=== PATIENT | female | born 1985 | race African-American/Black ===

== ENCOUNTER 2019-02-12 14:16 | Emergency (ER) | payer MEDICAID, SELFPAY ==
[2019-02-12 14:19] VITALS: BP 148/89; PULSE 64; RESP 16; TEMP 36.1; O2SAT 99; BMI 40.3
--- NOTE | 2019-02-12 16:25 | CT_ITS ---
STUDY: CT BRAIN WITHOUT CONTRAST REASON FOR EXAM: Female, 33 years old. Headache, difficulty swallowing RADIATION DOSAGE (If Supplied By Facility): CTDIvol = ( 44.99 ) mGy, DLP = ( 779.24 ) mGycm TECHNIQUE: Transaxial CT imaging of the brain was performed without administration of intravenous contrast material. Individualized dose optimization techniques were used for this CT. COMPARISON: No relevant priors. FINDINGS: Normal soft tissue structures. Normal calvarium. Normal size ventricles and extra-axial spaces for the patient's age. Normal white matter tracts of the cerebral hemispheres. Normal basal ganglia and thalami. Normal brainstem. Normal cerebellum. There is no intracranial hemorrhage. There are no findings of an acute ischemic infarction. Normal visualized paranasal sinuses. CT/Brain/Head without Contrast IMPRESSION: Normal unenhanced CT scan of the brain. Electronically Signed: Tom Moore DO at 18:50 EDT Tel [phone], Service support ,
--- NOTE | 2019-02-12 16:27 | CT_ITS ---
STUDY: CT SOFT TISSUE NECK WITH CONTRAST REASON FOR EXAM: Female, 33 years old. Difficulty swallowing. RADIATION DOSAGE (If Supplied By Facility): CTDIvol = ( 23.79 ) mGy, DLP = ( 641.48 ) mGycm TECHNIQUE: The patient was scanned in a multi-detector CT scanner. High resolution transaxial imaging was performed following intravenous administration of 100ML IV Isovue 300. Sagittal and coronal images were reconstructed. Individualized dose optimization techniques were used for this CT. COMPARISON: None. FINDINGS: Normal bilateral parotid glands. Normal bilateral sub plant manager spaces. Normal bilateral parapharyngeal spaces. Normal bilateral carotid spaces. Normal bilateral submandibular glands and spaces. Normal visualized nasopharynx. Normal retropharyngeal space. Normal prevertebral space. Normal visualized bilateral faucial tonsils. The visualized tongue, tongue base and oropharynx are normal. The visualized cervical lymph nodes (levels I-) are within normal size limits, and maintain normal morphology. There is no demonstrated solid or cystic mass lesion. There is no abnormal contrast enhancement. Normal epiglottis, bilateral vallecula and hypopharynx. The pre-epiglottic and paraglottic adipose spaces are normal. Normal visualized bilateral piriform sinuses, aryepiglottic folds, vocal cords, and arytenoid-cricoid articulations. Normal subglottic trachea. Normal bilateral lobes of the thyroid gland. Normal visualized pulmonary apices. Normal visualized paranasal sinuses. Normal visualized cervical spine. CT/Soft Tissue Neck WITH Contrast IMPRESSION: Normal enhanced CT examination of the soft tissues of the neck. Electronically Signed: Barbara Adamson MD at 21:16 EDT Tel , Service support ,
[2019-02-12 17:11] LABS: Bacteria 0 SEEN /hpf (None Seen); Mucous, Urine 0 SEEN /hpf (<or=2+); Red Blood Cells-Urine 0 SEEN /hpf (0-5); White Blood Cells 0 SEEN /hpf (0-5)
[2019-02-12 17:14] LABS: Color, Urine Yellow (Yellow); Glucose, Dipstick Normal (Normal); Ketone-Dipstick Negative (Negative); Leukocyte Esterase-Dipstick Negative /ul (Negative); Nitrite-Dipstick Negative (Negative); Occult Blood-Urine Negative /ul (Negative); Protein-Dipstick Negative (Negative); Specific Gravity, Urine 1.015 (1.002-1.030); Urine Bilirubin Dipstick Negative (Negative); Urine Clarity Sl. Cloudy (Clear); Urine Urobilinogen Normal (Normal)
[2019-02-12 17:16] VITALS: BP 105/72; PULSE 61; RESP 27
[2019-02-12] MEDS: 0.9% Normal Saline 1,000 ML 1000 ML IV (17:17)
[2019-02-12 17:28] LABS: Squamous Epithelial Cells - UA 5-10 SEEN /hpf (5-10)
--- NOTE | 2019-02-12 17:52 | NURSING ---
CBCD AND CHEMISTRIES HEMOLIZED
[2019-02-12] MEDS: 0.9% Normal Saline 1,000 ML 150 ML IV (17:55)
[2019-02-12 18:53] LABS: Absolute Lymphocyte Count 3.75 X10^3/ul (0.83-4.51); Absolute Neutrophil Count 3.6 X10^3/uL (2.0-7.7); Basophil# 0.02 X10^3/uL; Basophil% 0.2 % (0-1); Eosinophils% 2.5 % (0-5); Hematocrit 40.2 % (37-47); Hemoglobin 12.6 g/dl (12.0-15.0); Lymphocyte # 3.75 X10^3/ul (4.0); Mean Corp Hgb Conc 31.3 g/gl (32-36); Mean Corpuscular Volume 82.9 fL (81-99); Mean Platelet Vol. 10.8 fl (6.2-12.0); Monocyte# 0.55 X10^3/uL; Monocyte% 6.7 % (0-10); Neutrophil # 3.63 X10^3/uL (2.7-7.7); Neutrophil % 44.5 % (47-70); Platelet Count 275 K/mm3 (150-450); RBC Distribution Width CV 15.4 % (11.6-14.6); RBC Distribution Width SD 46.9 fl (35.1-43.9); Red Blood Count 4.85 M/mm3 (4.2-5.4); White Blood Count 8.2 K/mm3 (4.4-11.0)
[2019-02-12 18:58] LABS: POSITIVE COUNT NO; POSITIVE DIFFERENTIAL NO; POSITIVE MORPHOLOGY NO
[2019-02-12 19:04] VITALS: PULSE 63; RESP 18; O2SAT 100
[2019-02-12 19:19] LABS: AST(SGOT) 16 U/L (15-37); Alanine Aminotransfer ALT/SGPT 21 U/L (13-56); Albumin, Serum 3.3 g/dL (3.2-5.0); Alkaline Phosphatase 111 U/L (45-117); Anion Gap 4 (5-15); BUN 10 mg/dL (7-18); BUN/Creat Ratio 10.7 RATIO (10-20); Calcium,Total 8.4 mg/dL (8.5-10.1); Chloride 110 mmol/L (98-107); Creatinine, Serum 0.93 mg/dL (0.55-1.02); EST Glomerular Filtration Rate 74 mL/min (>60); Est Glom Filt Rate - Afr Amer 89 mL/min (>60); Globulin 3.3 g/dL (2.2-4.2); Glucose 69 mg/dL (74-106); Lipase 98 U/L (73-393); Potassium 3.7 mmol/L (3.5-5.1); Protein, Total 6.6 g/dL (6.4-8.2); Sodium Level 141 mmol/L (136-145)
[2019-02-12 19:21] LABS: hCG Titer Quant., Serum < 1 mIU/mL (<9 non-preg)
--- NOTE | 2019-02-12 21:00 | ED.VISSUMM ---
- ER Visit Summary Date of Service: 02/12/19 Chief Complaint: Sore throat, heartburn, difficulty swallowing, forgetfulness History of Present Illness: The patient is a 33 F with a abnormal constitutional symptoms over the past 3 weeks. She reports tightness in her throat that makes it difficult to swallow. She states she has to excessively chew her food. She only eats one meal a day at baseline. She does have a history of reflux and takes Pepcid. She states she has felt for more forgetful recently and that is not like her. She was reviewing her symptoms on global and believe she has dysphasia, but does not know the cause of her dysphagia. Physical Examination: Vital signs are unremarkable. Patient sitting upright in bed no acute distress. Head neck examination is unremarkable. Heart is regular rate and rhythm. Lung sounds are clear. Abdomen is soft with no focal tenderness. Active bowel sounds are noted. Extremity examination is unremarkable. Neuro exam reveals normal strength and sensation throughout. She is alert and oriented at this time. Test Results: CBC and chemistry studies significant only for glucose borderline low at 69. LFTs lipase normal. Urinalysis normal. test negative. CT of the head is normal. CT of the neck with IV contrast is unremarkable. Emergency Department Course and Treatment: Patient is given IV fluids here. I did discuss with her concern for chronic reflux and only eating 1 meal a day which may cause irritation of her esophagus making it difficult to swallow. I recommended follow-up with surgery for possible EGD. Treatment Plan: [] Disposition: Discharge Impression: Dysphasia This note was generated with [employer] dictation software. It may contain incorrect words, spelling, and punctuation that were not noted in review of the chart prior to signing ED Disposition - Plan for ED Patient: Disposition: Home or Assisted Living Instructions: Understanding Dysphagia Referrals: Santos Crowell MD [STAFF PHYSICIAN] - 1 Week Olivia Anderson NP-C [Primary Care Provider] -
--- NOTE | 2019-02-12 21:01 | ED.DEP ---
ED Disposition - Plan for ED Patient: Disposition: Home or Assisted Living Instructions: Understanding Dysphagia Referrals: Olivia Anderson NP-C [Primary Care Provider] - Santos Crowell MD [STAFF PHYSICIAN] - 1 Week
[2019-02-12 21:15] VITALS: BP 137/87; PULSE 81; RESP 14; O2SAT 99
== END 2019-02-12 21:15 | disposition home or self-care (01) ==
PROVIDERS: Emergency Provider Emergency Medicine; Family Provider Nurse Practitioner Family; PCP Nurse Practitioner Family
DX: R13.10 Dysphagia, unspecified (principal); R51 Headache; K21.9 Gastro-esophageal reflux disease without esophagitis; Z79.899 Other long term (current) drug therapy
CPT/HCPCS: 36415; 70450; 70491; 80048; 80076; 81001; 83690; 84702; 85025; 99283; Q9967; A4216

== ENCOUNTER 2022-10-10 07:13 | Emergency (ER) | payer MEDICAID, SELFPAY ==
[2022-10-10] VITALS (7 sets, daily range): BP systolic 120–135; BP diastolic 69–99; PULSE 45–66; RESP 12–18; TEMP 36.4; O2SAT 98–100; BMI 38.0
--- NOTE | 2022-10-10 07:59 | EKG12_ITS ---
Test Reason : CP Blood Pressure : / mmHG Vent. Rate : 050 BPM Atrial Rate : 050 BPM P-R Int : 146 ms QRS Dur : 072 ms QT Int : 442 ms P-R-T Axes : 015 036 026 degrees QTc Int : 402 ms Sinus bradycardia Otherwise normal ECG Confirmed by CHANELLE TINOCO, IGNACIO ([id number]), brands editor ALYSA TAM ([id number]) on 10/13/2022 10:29:34 AM Referred By: CARLOS Confirmed By:IGNACIO ROCA MD
--- NOTE | 2022-10-10 08:01 | NURSING ---
NO OLD EKGS
--- NOTE | 2022-10-10 08:05 | RAD_ITS ---
STUDY: X-RAY CHEST REASON FOR EXAM: Female, 36 years old. Chest pain TECHNIQUE: Single AP portable view of the chest. COMPARISON: None. FINDINGS: The lungs are clear and expanded. There is no demonstrated pleural abnormality. Normal size heart. Normal mediastinum and bri. Normal visualized pulmonary arteries. Normal visualized aortic arch and descending thoracic aorta. Normal visualized thoracic spine. Normal visualized ribs, clavicles, and shoulders. There is no demonstrated abnormality of the visualized soft tissue structures of the upper abdomen. RAD/Chest 1 View (Portable) IMPRESSION: Normal x-ray examination of the chest. Electronically Signed: Jeffrey Hodgson MD at 8:25 EST ,
[2022-10-10 08:07] LABS: Absolute Lymphocyte Count 3.02 X10^3/uL (0.83-4.51); Absolute Neutrophil Count 4.1 X10^3/uL (2.0-7.7); Basophil# 0.04 X10^3/uL; Basophil% 0.5 % (0-1); Eosinophil# 0.19 X10^3/uL; Eosinophils% 2.4 % (0-5); Hematocrit 42.9 % (37-47); Lymphocyte # 3.02 X10^3/ul (0.83-4.51); Lymphocyte % 37.9 % (19-41); Mean Corp Hgb Conc 30.3 g/dL (32-36); Mean Corpuscular Hgb 25.8 pg (27.0-32.0); Mean Corpuscular Volume 85.1 fL (81-99); Mean Platelet Vol. 10.7 fl (6.2-12.0); Monocyte% 7.5 % (0-10); NRBC Flagged by Analyzer 0 % (0-5); Neutrophil % 51.4 % (47-70); Platelet Count 322 K/mm3 (150-450); RBC Distribution Width CV 15.3 % (11.6-14.6); Red Blood Count 5.04 M/mm3 (4.2-5.4)
--- NOTE | 2022-10-10 08:10 | EDS_ITS ---
HPI History of Present Illness Chief Complaint: Chest Pain Informant: patient Onset/Context/Timing Onset: Today Activity at onset: sudden and sleep Timing: Continuous Quality: Positive for Burning, Pressure and Sharp Location: Substernal and Left Parasternal Worsened By: Movement of Arm, Breathing and - (Talking) Relieved By: Nothing Associated Symptoms: Negative for Nausea, Vomiting, Diaphoresis, Dyspnea, Cough, Fever, Lightheadedness, Acid Reflux or Palpitations Narrative Narrative: Patient presents with chest pain that began approximately 2 hours prior to arrival. Patient states she was sleeping when the pain began. Patient states the pain feels like pressure, burning, and sharp. Patient states the pain has been constant. Patient states pain is over the left upper parasternal area and upper substernal area. Patient states it is worse when she moves her arms. Patient states it is worse with deep breathing and with talking. Patient states nothing seems to help with the pain. Patient denies any nausea or vomiting. Patient denies any cough or fevers. Patient denies any shortness of breath. Patient denies any cardiac or PE risk factors. CVD Risk Factors: Negative for Hypertension, Diabetes, Hypercholesterolemia, Family History 1' </=55 or Smoking PE Risk Factors: Negative for Recent Travel/Surgery, Recent Immobilization, Prior DVT or PE, Cancer or OCP + Smoking + >/=35 PFSH PFSH Medical History (Updated 10/10/22 @ 11:[address] Shady Lopes DO) Anxiety Medical History no medical history Home Medications buspirone 15 mg tablet 15 mg PO TID 10/10/22 [History Last Taken Unknown] Allergy/AdvReac Type Severity Reaction Status Date / Time amoxicillin Allergy Hives Verified 10/10/22 07:16 Penicillins Allergy Hives Verified 10/10/22 07:16 Surgical History (Updated 10/10/22 @ 08:[address] Shady Lopes DO) Hx of foot surgery Hx of tonsillectomy Hx of tubal ligation Social History Smoking Status: Never smoker ROS ROS ED Constitutional Constitutional ED: Denies chills or fever(s) Eyes Eyes: Denies blurry vision or change in vision ENT ENT ED: Denies rhinorrhea or sore throat Cardiovascular Cardiovascular: Reports chest pain; Denies palpitations Respiratory/Chest Respiratory/Chest: Denies cough or dyspnea Gastrointestinal Gastrointestinal: Denies abdominal pain, nausea or vomiting Genitourinary Genitourinary ED: Denies dysuria or hematuria Musculoskeletal Musculoskeletal: Denies back pain or neck pain Integumentary Denies abscess or rash Neurologic Neurologic: Denies headache(s) or weakness Allergic/Immunologic Allergic/Immunologic ED: Denies mouth swelling or urticaria EXAM Physical Exam Const Vital Signs: 10/10/22 07:14 10/10/22 07:20 10/10/22 08:05 Temperature 97.6 F L Temperature Source Temporal Pulse Rate 66 Respiratory Rate 18 Respiratory Effort Normal Non-Labored Blood Pressure 135/69 H Blood Pressure Mean 91 Pulse Ox 100 98 Oxygen Delivery Method Room Air Room Air 10/10/22 08:21 10/10/22 09:16 10/10/22 10:05 Temperature Temperature Source Pulse Rate 46 L 58 L 45 L Respiratory Rate 16 16 12 Respiratory Effort Blood Pressure 126/81 H 120/80 123/83 H Blood Pressure Mean 96 93 96 Pulse Ox 98 99 100 Oxygen Delivery Method Room Air Room Air Room Air 10/10/22 11:01 Temperature Temperature Source Pulse Rate 48 L Respiratory Rate 16 Respiratory Effort Blood Pressure 128/99 H Blood Pressure Mean 108 Pulse Ox 98 Oxygen Delivery Method Room Air Positive well nourished, well developed and obese General Appearance ED: well developed and NAD Nutritional Appearance: obese HEENT normocephalic and atraumatic Eyes PERRL and EOMs intact bilaterally Neck supple and no JVD Chest Wall palpation of chest normal Resp normal respiratory effort and clear to auscultation bilaterally Effort and Inspection: Negative for respiratory distress Cardio regular rate, regular rhythm and no murmurs GI normal to inspection, nondistended, normoactive bowel sounds, soft to palpation, non-tender and non-distended Extremity normal to inspection General Extremety ED: Negative for edema or tenderness General Extremity: Negative for edema Neuro oriented x3, CN's II-XII intact bilaterally and no sensory deficits noted Sensorium / Orientation: awake and alert Motor Exam: strength 5/5 throughout Psych mental status grossly normal Heart Score History: Slightly/Non-Suspicious ECG: Normal Age: </= 45 years Risk Factors: No Risk Factors Troponin: </= Normal Limit Score: 0 MDM MDM MDM Narrative Medical decision making narrative: Patient was given aspirin here. EKG was obtained. On my interpretation, it showed a sinus bradycardia with a rate of 50. AK interval, QRS interval, and QTc intervals were all normal. [place] was normal. There are no acute ST or T wave changes. CBC was within normal limits. Basic metabolic profile was within normal limits. Initial high-sensitivity troponin was normal at 5. Portable 1 view chest x-ray was obtained. On my interpretation, lung wilson are clear. There is normal cardiac silhouette. Bony thorax is normal. There is no acute process noted. Radiologist also interpreted the x-ray and agrees. 2-hour repeat high-sensitivity troponin was normal at 6. Patient states her pain started to return. Repeat EKG was obtained. On my interpretation, it showed a sinus bradycardia with a rate of 46. AK interval, QRS interval, and QTc intervals were all normal. [place] was normal. There are no acute ST or T wave changes. Patient was given a dose of Toradol. Patient was feeling better on reevaluation. Patient was advised of her findings. Patient has a HEART score of 0. Patient was advised that this is low risk for acute cardiac event. Patient was instructed to follow-up with her primary care physician in 5 to 7 days. Patient was instructed return if worse in any way. Patient understood and was agreeable with the plan. All questions were answered. Lab Data Attestation: I reviewed the patient's lab results. Labs: Laboratory Results - last 24 hr 10/10/22 10/10/22 10/10/22 07:35 07:35 10:15 WBC 8.0 RBC 5.04 Hgb 13.0 Hct 42.9 MCV 85.1 MCH 25.8 L MCHC 30.3 L RDW Std Deviation 47.0 H RDW Coeff of Loly 15.3 H Plt Count 322 MPV 10.7 Immature Gran % (Auto) 0.300 Neut % (Auto) 51.4 Lymph % (Auto) 37.9 [place] % (Auto) 7.5 Eos % (Auto) 2.4 Baso % (Auto) 0.5 Absolute Neuts (auto) 4.1 Absolute Lymphs (auto) 3.02 Nucleated RBC % 0 Sodium 140 Potassium 4.2 Chloride 111 H Carbon Dioxide 24.0 Anion Gap 5 BUN 17 Creatinine 0.92 Estim Creat Clear Calc 86.10 Est GFR (MDRD) Af Amer 89 Est GFR (MDRD) Non-Af 74 BUN/Creatinine Ratio 18.6 Glucose 92 Calcium 9.0 Troponin I High Sens 5 6 Radiography Chest X-Ray - ED: 1 View, Read by ED Physician, Read by Radiologist and No Acute Disease Diagnostic Testing: Clinical Impression(s) from Imaging Studies Chest X-Ray 10/10/22 08:05 IMPRESSION: Normal x-ray examination of the chest. Electronically Signed: Jeffrey Hodgson MD at 8:25 EST , EKG Initial EKG: Attestation: I personally reviewed and interpreted this EKG as follows: Interpretation: No Acute Injury Pattern and Sinus Bradycardia (50) Prior EKG tracings: not available for review Prior: No Prior Follow-up EKG: Attestation: I personally reviewed and interpreted this EKG as follows: Interpretation: No Acute Injury Pattern and Sinus Bradycardia (46) Prior: Unchanged Discharge Plan Triage Chief Complaint: Chest Pain ED Provider: Shady Lopes Dx/Rx/DC Orders Clinical Impression: Chest pain of uncertain etiology, Anxiety, Sinus bradycardia Instructions: ED Chest Pain, Uncertain Cause Prescriptions: No Action buspirone 15 mg tablet 15 mg PO TID Label Comments: take 1 tablet by mouth three times a day Stand Alone Forms: Work / School Excuse Primary Care Provider: Drea Doyle NP Referrals: Olivia Anderson NP, [employer] COUNSELOR-C [Non-Staff] - 3-5 Days Disposition Disposition: Home, Self Care
[2022-10-10] MEDS: Aspirin 81 MG TAB.CHEW 324 MG PO (08:20)
[2022-10-10 08:25] LABS: Anion Gap 5 (5-15); BUN 17 mg/dL (7-18); BUN/Creat Ratio 18.6 RATIO (10-20); Chloride 111 mmol/L (98-107); Creatinine, Serum 0.92 mg/dL (0.55-1.02); EST Glomerular Filtration Rate 74 mL/min (>60); Est Glom Filt Rate - Afr Amer 89 mL/min (>60); Glucose 92 mg/dL (74-106); Potassium 4.2 mmol/L (3.5-5.1); Sodium Level 140 mmol/L (136-145); Troponin-I HS (w/2H Reflex) 5 pg/mL (3.0-54.0)
[2022-10-10 10:04] LABS: Reflex Troponin-HS? (from REC) Y
[2022-10-10 10:37] LABS: Troponin-I HS 6 pg/mL (3.0-54.0)
--- NOTE | 2022-10-10 10:46 | EKG12_ITS ---
Test Reason : REPEAT-CHEST PAIN Blood Pressure : / mmHG Vent. Rate : 046 BPM Atrial Rate : 046 BPM P-R Int : 152 ms QRS Dur : 072 ms QT Int : 464 ms P-R-T Axes : 015 037 040 degrees QTc Int : 406 ms Sinus bradycardia Otherwise normal ECG Confirmed by CHANELLE TINOCO, IGNACIO ([id number]), photo editor ALYSA TAM ([id number]) on 10/13/2022 10:29:48 AM Referred By: CARLOS Confirmed By:IGNACIO ROCA MD
[2022-10-10] MEDS: Ketorolac 30 MG/ML Syringe IV (10:51)
== END 2022-10-10 12:05 | disposition home or self-care (01) ==
PROVIDERS: Emergency Provider Emergency Medicine; PCP Nurse Practitioner Primary Care; Visit Provider Emergency Medicine
DX: R07.9 Chest pain, unspecified (principal); R00.1 Bradycardia, unspecified; F41.9 Anxiety disorder, unspecified; E66.9 Obesity, unspecified; Z79.899 Other long term (current) drug therapy
CPT/HCPCS: 36415; 71045; 80048; 84484; 85025; 93005; 96374; 99285; A4216

== ENCOUNTER 2022-10-30 16:52 | Emergency (ER) | payer MEDICAID, SELFPAY ==
[2022-10-30 16:53] VITALS: BP 119/76; PULSE 92; RESP 16; TEMP 36.3; O2SAT 98; BMI 39.5
--- NOTE | 2022-10-30 18:24 | EKG12_ITS ---
Test Reason : Dizzyness Blood Pressure : / mmHG Vent. Rate : 070 BPM Atrial Rate : 070 BPM P-R Int : 144 ms QRS Dur : 068 ms QT Int : 388 ms P-R-T Axes : 006 035 023 degrees QTc Int : 419 ms Normal sinus rhythm Normal ECG When compared with ECG of 10-OCT-2022 10:37, Vent. rate has increased BY 24 BPM Confirmed by CHANELLE TINOCO, IGNACIO ([id number]), makeup editor ALYSA TAM ([id number]) on 11/04/2022 7:56:04 AM Referred By: Katerina Confirmed By:IGNACIO ROCA MD
--- NOTE | 2022-10-30 19:00 | EX.ED.DYSGE1 ---
HPI History of Present Illness Chief Complaint: Dizziness Informant: patient Narrative Narrative: Patient is a 36-year-old female present with flulike symptoms. Patient's daughter was recently diagnosed with influenza A. Patient has had a sore throat and today developed diarrhea. She is initially feeling fine and then has subsequent episode diarrhea and then had episode of nausea. Patient felt she was going to pass out now just feels blah. Patient's friends told that the patient's face became very pale. She had a fever 100 ?F. She had Robitussin and Mucinex at 8 AM this morning. She states she is been ill for the past 2 days. Does have associated cough. Denies difficulty breathing. Really right now she is just feeling fatigued. Denies any chest pain. Is concerned she is dehydrated. No other complaints at this time. [facility] Medical History Anxiety Home Medications buspirone 15 mg tablet 15 mg PO TID 10/10/22 [History Last Taken Unknown] ondansetron 4 mg disintegrating tablet 4 mg PO Q6H PRN nausea and vomiting #20 tabs 10/30/22 [Rx Last Taken Unknown] Allergy/AdvReac Type Severity Reaction Status Date / Time amoxicillin Allergy Hives Verified 10/30/22 16:55 Penicillins Allergy Hives Verified 10/30/22 16:55 Surgical History Hx of foot surgery Hx of tonsillectomy Hx of tubal ligation Social History Smoking Status: Never smoker ROS ROS ED Constitutional Constitutional ED: Reports chills and fever(s) Eyes Eyes: Denies change in vision ENT ENT ED: Reports sore throat; Denies ear pain Cardiovascular Cardiovascular: Denies chest pain or palpitations Respiratory/Chest Respiratory/Chest: Reports cough; Denies dyspnea Gastrointestinal Gastrointestinal: Reports diarrhea and nausea; Denies abdominal pain Genitourinary Genitourinary ED: Denies dysuria or hematuria Musculoskeletal Musculoskeletal: Denies arthralgias or myalgias Integumentary Denies rash Neurologic Neurologic: Reports weakness; Denies headache(s) Psychiatric Psychiatric: Denies anxiety EXAM Physical Exam Const Vital Signs: 10/30/22 16:53 10/30/22 19:17 10/30/22 19:27 Temperature 97.4 F L Temperature Source Temporal Pulse Rate 92 Pulse Rate [Sitting (for 1 minute prior to obtaining)] 84 Pulse Rate [Standing (for 1 minute prior to obtaining)] 86 Respiratory Rate 16 Respiratory Effort Normal Blood Pressure 119/76 Blood Pressure [Lying] 103/59 L Blood Pressure [Sitting (for 1 minute prior to obtaining)] 116/81 H Blood Pressure [Standing (for 1 minute prior to obtaining)] 130/87 H Blood Pressure Mean 90 Blood Pressure Mean [Lying] 73 Blood Pressure Mean [Sitting (for 1 minute prior to obtaining)] 92 Blood Pressure Mean [Standing (for 1 minute prior to obtaining)] 101 Pulse Ox 98 Oxygen Delivery Method Room Air 10/30/22 21:05 Temperature Temperature Source Pulse Rate 81 Pulse Rate [Sitting (for 1 minute prior to obtaining)] Pulse Rate [Standing (for 1 minute prior to obtaining)] Respiratory Rate 16 Respiratory Effort Blood Pressure 117/74 Blood Pressure [Lying] Blood Pressure [Sitting (for 1 minute prior to obtaining)] Blood Pressure [Standing (for 1 minute prior to obtaining)] Blood Pressure Mean Blood Pressure Mean [Lying] Blood Pressure Mean [Sitting (for 1 minute prior to obtaining)] Blood Pressure Mean [Standing (for 1 minute prior to obtaining)] Pulse Ox 98 Oxygen Delivery Method Positive well nourished and well developed General Appearance ED: well developed and NAD HEENT Reports TM's clear and dry mucous membranes HEENT Narrative: Mild pharyngeal injection Tympanic Membrane ED: Yes TM's clear Mouth ED: Yes dry mucous membranes Mouth: dry mucous membranes Eyes PERRL and EOMs intact bilaterally Neck supple and no JVD Chest Wall inspection of chest normal and palpation of chest normal Resp normal respiratory effort and clear to auscultation bilaterally Cardio regular rate and regular rhythm GI normal to inspection, nondistended, normoactive bowel sounds and non-tender Back/Spine no CVA tenderness Extremity normal to inspection General Extremety ED: Negative for edema or tenderness General Extremity: Negative for edema Neuro oriented x3 Neuro Narrative: No focal deficits appreciated Sensorium / Orientation: alert Motor Exam: general weakness Psych mental status grossly normal Skin no rashes or lesions noted MDM MDM MDM Narrative Medical decision making narrative: Patient is evaluated for dizziness, generalized malaise and flulike symptoms. Patient will just does not feel well but her vital signs are normal. Due to the reported near syncopal episode metabolic work-up obtained including an EKG, CBC and CMP. This is largely normal. Patient's creatinine is minimally elevated at 1.06. Patient is given IV fluids. Influenza test is positive. This is consistent with patient's presentation. Patient is also given dose of Toradol in the ER. She will be discharged home with a prescription for some Zofran. At this time I do not think she requires further admission or observation for her symptomatic influenza infection. She is only symptoms for couple days as not having respiratory symptoms. I do not think a chest x-ray is indicated at this time. She is not hypoxic, tachypneic or tachycardic. Lab Data Labs: Laboratory Results - last 24 hr 10/30/22 10/30/22 10/30/22 19:10 19:10 19:40 WBC 6.6 RBC 5.27 Hgb 13.7 Hct 44.6 MCV 84.6 MCH 26.0 L MCHC 30.7 L RDW Std Deviation 48.0 H RDW Coeff of Loly 15.7 H Plt Count 296 MPV 10.4 Immature Gran % (Auto) 0.500 Neut % (Auto) 72.4 H Lymph % (Auto) 11.2 L [place] % (Auto) 13.5 H Eos % (Auto) 2.1 Baso % (Auto) 0.3 Absolute Neuts (auto) 4.8 Absolute Lymphs (auto) 0.74 L Nucleated RBC % 0 Sodium Cancelled Cancelled Potassium Cancelled Cancelled Chloride Cancelled Cancelled Carbon Dioxide Cancelled Cancelled Anion Gap Cancelled Cancelled BUN Cancelled Cancelled Creatinine Cancelled Cancelled Estim Creat Clear Calc Cancelled Cancelled Est GFR (MDRD) Af Amer Cancelled Cancelled Est GFR (MDRD) Non-Af Cancelled Cancelled BUN/Creatinine Ratio Cancelled Cancelled Glucose Cancelled Cancelled Calcium Cancelled Cancelled Total Bilirubin Cancelled Cancelled AST Cancelled Cancelled ALT Cancelled Cancelled Alkaline Phosphatase Cancelled Cancelled Total Protein Cancelled Cancelled Albumin Cancelled Cancelled Globulin Cancelled Cancelled Albumin/Globulin Ratio Cancelled Cancelled 10/30/22 20:20 WBC RBC Hgb Hct MCV MCH MCHC RDW Std Deviation RDW Coeff of Loly Plt Count MPV Immature Gran % (Auto) Neut % (Auto) Lymph % (Auto) [place] % (Auto) Eos % (Auto) Baso % (Auto) Absolute Neuts (auto) Absolute Lymphs (auto) Nucleated RBC % Sodium 139 Potassium 4.0 Chloride 111 H Carbon Dioxide 22.0 Anion Gap 6 BUN 13 Creatinine 1.06 H Estim Creat Clear Calc 74.73 Est GFR (MDRD) Af Amer 76 Est GFR (MDRD) Non-Af 62 BUN/Creatinine Ratio 12.3 Glucose 102 Calcium 8.4 L Total Bilirubin 0.30 AST 16 ALT 25 Alkaline Phosphatase 70 Total Protein 6.5 Albumin 3.1 L Globulin 3.4 Albumin/Globulin Ratio 0.9 Rhythm Strip Rhythm Strip: Sinus Rhythm Rate: 70 Ectopy: None EKG Initial EKG: Attestation: I personally reviewed and interpreted this EKG as follows: Interpretation: Sinus Rhythm Comments: Normal sinus rhythm rate of 70 bpm Normal axis Normal intervals Normal ST segments Discharge Plan Triage Chief Complaint: Dizziness ED Provider: Velvet Borges Dx/Rx/DC Orders Clinical Impression: Influenza A, Malaise Instructions: ED Influenza (Adult) Prescriptions: New ondansetron 4 mg tablet,disintegrating 4 mg PO Q6H PRN (Reason: nausea and vomiting) Qty: 20 0RF No Action buspirone 15 mg tablet 15 mg PO TID Label Comments: take 1 tablet by mouth three times a day Primary Care Provider: Drea Doyle [employer] ENGINEER Referrals: Drea Doyle NP, [employer] STRU[employer]URAL ENGINEER-C [Primary Care Provider] - Activity Restrictions/Additional Instructions: Alternate ibuprofen and Tylenol. Drink lots of fluids. Disposition Disposition: Home, Self Care Discharge Date/Time: 10/30/22 21:06
[2022-10-30 19:17] VITALS: BP 103/59; BP 116/81; BP 130/87; PULSE 84; PULSE 86
[2022-10-30] MEDS: 0.9% Normal Saline 1,000 ML 1000 ML IV (19:20)
[2022-10-30 19:23] LABS: Absolute Lymphocyte Count 0.74 X10^3/uL (0.83-4.51); Absolute Neutrophil Count 4.8 X10^3/uL (2.0-7.7); Basophil# 0.02 X10^3/uL; Basophil% 0.3 % (0-1); Eosinophil# 0.14 X10^3/uL; Eosinophils% 2.1 % (0-5); Hematocrit 44.6 % (37-47); Hemoglobin 13.7 g/dL (12.0-15.0); Lymphocyte # 0.74 X10^3/ul (0.83-4.51); Lymphocyte % 11.2 % (19-41); Mean Corp Hgb Conc 30.7 g/dL (32-36); Mean Corpuscular Volume 84.6 fL (81-99); Mean Platelet Vol. 10.4 fl (6.2-12.0); Monocyte# 0.89 X10^3/uL; Monocyte% 13.5 % (0-10); NRBC Flagged by Analyzer 0 % (0-5); Neutrophil # 4.79 X10^3/uL (2.7-7.7); Neutrophil % 72.4 % (47-70); Platelet Count 296 K/mm3 (150-450); RBC Distribution Width CV 15.7 % (11.6-14.6); Red Blood Count 5.27 M/mm3 (4.2-5.4); White Blood Count 6.6 K/mm3 (4.4-11.0)
[2022-10-30] MEDS: Ketorolac 15 MG/ML Vial IV (19:25)
[2022-10-30 20:43] LABS: ALB/GLOB Ratio 0.9 RATIO (0.9-2.4); AST(SGOT) 16 U/L (15-37); Alanine Aminotransfer ALT/SGPT 25 U/L (13-56); Albumin, Serum 3.1 g/dL (3.2-5.0); Alkaline Phosphatase 70 U/L (45-117); Anion Gap 6 (5-15); BUN 13 mg/dL (7-18); BUN/Creat Ratio 12.3 RATIO (10-20); Calcium,Total 8.4 mg/dL (8.5-10.1); Chloride 111 mmol/L (98-107); Creatinine, Serum 1.06 mg/dL (0.55-1.02); EST Glomerular Filtration Rate 62 mL/min (>60); Est Glom Filt Rate - Afr Amer 76 mL/min (>60); Estimated Creatinine Clearance 74.73 ml/min; Globulin 3.4 g/dL (2.2-4.2); Glucose 102 mg/dL (74-106); Protein, Total 6.5 g/dL (6.4-8.2); Sodium Level 139 mmol/L (136-145)
[2022-10-30 21:05] VITALS: BP 117/74; PULSE 81; RESP 16; O2SAT 98
== END 2022-10-30 21:06 | disposition home or self-care (01) ==
PROVIDERS: Emergency Provider Emergency Medicine; PCP Nurse Practitioner Primary Care; Visit Provider Emergency Medicine
DX: J10.1 Influenza due to other identified influenza virus with other respiratory manifestations (principal); R53.81 Other malaise
CPT/HCPCS: 80053; 85025; 87428; 93005; 96361; 96374; 99285; J7030; A4216

== ENCOUNTER → 2023-11-11 | Outpatient (CLI) | payer MEDICAID, SELFPAY ==
[2023-11-13 17:07] LABS: Hepatitis B Core Ab Total Negative (Negative); QNTFERON TB Mitogen Value > 10.00 IU/mL (.); QNTFERON TB Nil Value 0 IU/mL (.); QNTFERON TB1+ Ag Value 0 IU/mL (.); QNTFERON TB2+ Ag Value 0 IU/mL (.); QNTIFERON TB Positive Criteria Negative (Negative)
== END | disposition home or self-care (01) ==
LOC: MTLAB 13:50
PROVIDERS: PCP Nurse Practitioner Primary Care; Referring Provider Physician Assistant; Visit Provider Physician Assistant
DX: L40.0 Psoriasis vulgaris (principal); M12.9 Arthropathy, unspecified; Z79.899 Other long term (current) drug therapy
CPT/HCPCS: 36415; 86480; 86704

== ENCOUNTER 2023-12-11 16:56 | Emergency (ER) | payer MEDICAID, SELFPAY ==
[2023-12-11 16:57] VITALS: BP 115/72; PULSE 56; RESP 14; TEMP 36.8; O2SAT 100; BMI 40.1
--- NOTE | 2023-12-11 17:15 | CT_ITS ---
INDICATION: right flank pain EXAMINATION: CT ABDOMEN AND PELVIS WITHOUT CONTRAST - CT Abdomen And Pelvis W/O Contrast Injection TECHNIQUE: Helically acquired images were obtained of the abdomen and pelvis without oral or IV contrast. A radiation dose optimization technique was used for this scan. IV Contrast dosage and agent: None. Oral contrast: None. COMPARISON: None. FINDINGS: LOWER CHEST: Lung bases are clear. No cardiomegaly or pericardial effusion. LIVER: Homogeneous. No focal mass. GALLBLADDER AND BILIARY TREE: Gallbladder surgically absent. No intra- or extrahepatic biliary ductal dilation. PANCREAS: No focal cystic or solid mass. SPLEEN: Normal size without focal cystic or solid mass. ADRENAL GLANDS: No nodules. KIDNEYS AND URETERS: Multiple, bilateral nonobstructing renal calculi. No hydronephrosis bilaterally. PERITONEUM: No ascites or free air. BOWEL: Normal appendix. No stomach or bowel distension. No focal inflammatory change. LYMPH NODES: No enlarged mesenteric or retroperitoneal lymph nodes. VESSELS: Aorta is non-dilated. URINARY BLADDER: Unremarkable. REPRODUCTIVE ORGANS: No pelvic masses. ABDOMINAL WALL: No discrete abdominal or pelvic wall hernia. BONES: Unremarkable. CT/Abdomen/Pelvis without Cont IMPRESSION: No acute findings in the abdomen or pelvis. Bilateral nonobstructing nephrolithiasis. No evidence of obstructive uropathy. Electronically Signed: Aly Brown MD at 18:31 EST ,
--- NOTE | 2023-12-11 17:17 | EX.ED.DYSGE1 ---
HPI History of Present Illness Chief Complaint: Flank Pain Informant: patient Onset/Context/Timing Onset: Today Narrative Narrative: Patient presents secondary to right flank pain. She states this morning she got up and had some diarrhea but did not think much of it. Mid afternoon she developing pain in the right lateral abdominal wall and right CVA region. She describes it as intermittent and sharp. She has had prior kidney stones and this feels similar. She has never required surgery for her kidney stones. She did have slight burning with urination today. No fever or chills. No nausea or vomiting. PFSH PFS Medical History (Updated 12/11/23 @ 20:[address] Christina Lozoya MD) Anxiety Depression IBS (irritable bowel syndrome) Kidney stones Home Medications buspirone 15 mg tablet 15 mg PO TID 10/10/22 [History Last Taken Unknown] ondansetron 4 mg disintegrating tablet 4 mg PO Q6H PRN nausea and vomiting #20 tabs 10/30/22 [Rx Last Taken Unknown] Allergy/AdvReac Type Severity Reaction Status Date / Time amoxicillin Allergy Hives Verified 12/11/23 16:57 Penicillins Allergy Hives Verified 12/11/23 16:57 Surgical History Hx of cholecystectomy Hx of foot surgery Hx of tonsillectomy Hx of tubal ligation Social History Smoking Status: Never smoker ROS ROS ED Constitutional Constitutional ED: Denies chills or fever(s) Eyes Eyes: Denies discharge from eye(s) ENT ENT ED: Denies discharge from eye(s), rhinorrhea or sore throat Cardiovascular Cardiovascular: Denies chest pain Respiratory/Chest Respiratory/Chest: Denies cough or dyspnea Gastrointestinal Gastrointestinal: Reports abdominal pain and diarrhea; Denies nausea or vomiting Genitourinary Genitourinary ED: Reports dysuria Musculoskeletal Musculoskeletal: Reports back pain; Denies extremity pain Integumentary Denies Abrasions or rash Neurologic Neurologic: Denies headache(s) or weakness Psychiatric Psychiatric: Denies anxiety or depression Allergic/Immunologic Allergic/Immunologic ED: Denies lip swelling or urticaria EXAM Physical Exam Const Vital Signs: 12/11/23 16:57 12/11/23 18:27 12/11/23 20:18 Temperature 98.3 F 98.1 F Temperature Source Temporal Oral Pulse Rate 56 L 57 L Respiratory Rate 14 16 18 Blood Pressure 115/72 125/68 H 126/83 H Blood Pressure Mean 86 87 97 Pulse Ox 100 100 98 Oxygen Delivery Method Room Air Room Air Positive well nourished and well developed General Appearance ED: well developed HEENT Reports moist mucous membranes Eyes EOMs intact bilaterally Chest Wall inspection of chest normal and palpation of chest normal Resp normal respiratory effort and clear to auscultation bilaterally Cardio regular rate and regular rhythm GI GI Narrative: Mild right-sided abdominal tenderness. No guarding or rebound. Auscultation: hypoactive bowel sounds Palpation: soft Extremity normal to inspection Neuro oriented x3 and no sensory deficits noted Motor Exam: strength 5/5 throughout Psych mental status grossly normal Skin no rashes or lesions noted MDM MDM MDM Narrative Medical decision making narrative: Abdomen established. Patient given morphine, Zofran, Toradol, and IV fluids. Labwork obtained to evaluate for leukocytosis, anemia, and electrolyte derangement. Urinalysis obtained to evaluate for infection/hematuria. CT flank will be obtained to evaluate for potential renal stone. History & Record Review Discussion w/independent historian: Patient Lab Data Attestation: I reviewed the patient's lab results. Labs: Laboratory Results - last 24 hr 12/11/23 12/11/23 17:12 17:26 WBC 9.4 RBC 5.29 Hgb 13.6 Hct 44.9 MCV 84.9 MCH 25.7 L MCHC 30.3 L RDW Std Deviation 49.5 H RDW Coeff of Loly 16.0 H Plt Count TNP MPV 11.2 Immature Gran % (Auto) 0.200 Neut % (Auto) 55.3 Lymph % (Auto) 37.7 [place] % (Auto) 4.9 Eos % (Auto) 1.4 Baso % (Auto) 0.5 Absolute Neuts (auto) 5.2 Absolute Lymphs (auto) 3.53 Nucleated RBC % 0 Differential Comment SCANNED Platelet Estimate A Sodium 139 Potassium 3.7 Chloride 109 H Carbon Dioxide 25.0 Anion Gap 5 BUN 12 Creatinine 0.95 Estim Creat Clear Calc 104.40 Est GFR (MDRD) Af Amer 85 Est GFR (MDRD) Non-Af 70 BUN/Creatinine Ratio 12.6 Glucose 76 Calcium 9.7 Troponin I High Sens 5 Urine Color Yellow Urine Clarity Clear Urine pH 6.5 Ur Specific [place] 1.015 Urine Protein Negative Urine Glucose (UA) Normal Urine Ketones 5 H Urine Occult Blood 10 H Urine Nitrite Negative Urine Bilirubin Negative Urine Urobilinogen Normal Ur Leukocyte Esterase Negative Urine RBC 0-5 SEEN Urine WBC 0-5 SEEN Ur Squamous Epith Cells 0-5 SEEN Urine Bacteria 0 SEEN Urine Mucus RARE Radiography Diagnostic Testing: Clinical Impression(s) from Imaging Studies Abdomen/Pelvis CT 12/11/23 17:15 IMPRESSION: No acute findings in the abdomen or pelvis. Bilateral nonobstructing nephrolithiasis. No evidence of obstructive uropathy. Electronically Signed: Aly Brown MD at 18:31 EST , EKG Initial EKG: Attestation: I personally reviewed and interpreted this EKG as follows: Interpretation: Sinus Bradycardia (Sinus bradycardia 51 bpm with sinus arrhythmia. No acute ischemia.) Treatment and Re-Evaluation :: CBC was normal white count 9.4 with normal differential. Hemoglobin normal at 13.6. Chemistry studies are unremarkable. Urinalysis reveals no evidence of infection. CT scan of the flank reveals no acute findings. Bilateral nonobstructing nephrolithiasis is noted. While we are awaiting test results patient started complaining of burning pain across her upper abdomen and up into her chest. EKG was obtained and is sinus bradycardia with no evidence of ischemia. Troponin is added and is normal. On repeat evaluation patient resting comfortably. Test results discussed with her. She is comfortable with discharge to home and will closely monitor her symptoms. Return instructions given. Discharge Plan Triage Chief Complaint: Flank Pain ED Provider: Christina Lozoya Dx/Rx/DC Orders Clinical Impression: Flank pain Instructions: ED Flank Pain, Uncertain Cause Prescriptions: No Action buspirone 15 mg tablet 15 mg PO TID Patient Comments: take 1 tablet by mouth three times a day ondansetron 4 mg tablet,disintegrating 4 mg PO Q6H PRN (Reason: nausea and vomiting) Qty: 20 0RF Stand Alone Forms: ED Work / School Excuse Primary Care Provider: Drea Doyle NP Referrals: Cook,Drea COMPONENTS ENGINEER, COMPONENTS ENGINEER-C [Primary Care Provider] - As Needed Disposition Disposition: Home, Self Care Discharge Date/Time: 12/11/23 20:20
[2023-12-11 17:36] LABS: Absolute Lymphocyte Count 3.53 X10^3/uL (0.83-4.51); Absolute Neutrophil Count 5.2 X10^3/uL (2.0-7.7); Basophil# 0.05 X10^3/uL; Basophil% 0.5 % (0-1); Eosinophil# 0.13 X10^3/uL; Eosinophils% 1.4 % (0-5); Hematocrit 44.9 % (37-47); Hemoglobin 13.6 g/dL (12.0-15.0); Lymphocyte # 3.53 X10^3/ul (0.83-4.51); Lymphocyte % 37.7 % (19-41); Mean Corp Hgb Conc 30.3 g/dL (32-36); Mean Corpuscular Hgb 25.7 pg (27.0-32.0); Mean Corpuscular Volume 84.9 fL (81-99); Mean Platelet Vol. 11.2 fl (6.2-12.0); Monocyte# 0.46 X10^3/uL; Monocyte% 4.9 % (0-10); NRBC Flagged by Analyzer 0 % (0-5); Neutrophil # 5.18 X10^3/uL (2.7-7.7); Neutrophil % 55.3 % (47-70); POSITIVE COUNT YES; RBC Distribution Width SD 49.5 fl (35.1-43.9); Red Blood Count 5.29 M/mm3 (4.2-5.4); White Blood Count 9.4 K/mm3 (4.4-11.0)
--- OUTSIDE RECORDS SUMMARY | 2023-12-11 17:38 | XMS RPT_ITS | CCD ---
Author Name Unknown Address [address] [place] [address] Organization [facility] Care Team Providers Care Registered Nurse Fetal Name Role Phone TORSTEN SPINNER TENDER-SLIDE DEVELOPER, DARLENE Ceron Primary Care Physicia n TIA TINOCO, DR KEITH Jackson Attending Karen Salas MD, DR KEITH Jackson Referring DARLENE Treviño Primary [facility] DARLENE Bernstein Primary Care DARLENE Bernstein Attending DARLENE Bernstein Primary [facility] Unavailable TIA TINOCO, DR KEITH Jackson Attending DARLENE Treviño Primary [facility] Darrick WEBER MD, DR KEITH Jackson Attending DARLENE Treviño Primary [facility] Darrick WEBER MD, DR KEITH Jackson Attending Karen de luna Allergies Allergy Classification Reported Allergen(s) Allergy Type Date of Onset Reaction(s) Facility (4 sources) Amoxicillin; Translations: [amoxicillin] Drug Allergy Rash [facility] (4 sources) Penicillin; Translations: [penicillins] Drug Allergy Rash [facility] Medications Current Medications Medication Drug Class(es) Dates Sig (Normalized) Sig (Original) 0.5 ML semaglutide 0.5 MG/ML Auto-Injector [Wegovy] (1 source) Start: 11-19-2022 End: 12-17-2022 inject 1 dose by subcutaneous injection every week Wegovy (0.25 mg dose) subcutaneous solution Dose : 0.25 mg =, Subcutaneous, qWeek, in the abdomen, thigh, or upper arm, X 4 week(s), # 2 mL, 0 Refill(s), 12/17/22 11:32:00 EST, Pharmacy: [id number], 173.6, cm, 11/19/22 10:34:00 EST, Height Start Date: 11/19/22 Stop Date: 12/17/22 Status: Ordered diphenhydrAMINE hydrochloride 25 mg oral capsule (4 sources) Histamine-1 Receptor Antagonist Start: 06-02-2019 Benadryl 25 mg oral capsule Dose : 25 mg = 1 cap(s), Oral, TID, PRN for allergy symptoms, # 30 cap(s), 0 Refill(s) Start Date: 06/02/19 Status: Ordered famotidine 20 mg oral tablet (4 sources) Histamine-2 Receptor Antagonist Start: 09-03-2020 take 1 tablet by mouth once daily as needed Pepcid 20 mg oral tablet See Instructions, PRN Dyspepsia, 1 tab(s) Oral qDay, 0 Refill(s) Start Date: 09/03/20 Status: Ordered Flonase 50 mcg/inh nasal spray (1 source) Start: 01-16-2022 take 1 dose nasal route twice daily Flonase 50 mcg/inh nasal spray Dose = 2 spray(s), Nostril, each, BID, # 16 gram(s), 0 Refill(s), Pharmacy: [facility] [address] Acute sinusitis, 172.7, cm, 01/16/22 8:53:00 EST, Height, kg, 01/16/22 8:53:00 EST, Dosing Weight Start Date: 01/16/22 Status: Ordered ibuprofen 600 mg oral tablet (1 source) Nonsteroidal Anti-inflammatory Drug Start: 09-07-2019 ibuprofen 600 mg oral tablet Dose : 600 mg = 1 tab(s), Oral, q8h, PRN abdominal discomfort, # 30 tab(s), 0 Refill(s) Start Date: 09/07/19 Status: Ordered meloxicam 15 mg oral tablet (1 source) Nonsteroidal Anti-inflammatory Drug Start: 03-27-2022 meloxicam 15 mg oral tablet Dose : 15 mg = 1 tab(s), Oral, qDay, # 30 tab(s), 0 Refill(s), Pharmacy: [facility] [address] 173, cm, 02/10/22 10:36:00 EDT, Height Start Date: 03/27/22 Status: Ordered Multivitamin preparation (4 sources) Start: 05-29-2020 take 1 tablet by mouth once daily Multivitamin Dose = 1 tab(s), Oral, Daily, 0 Refill(s) Start Date: 05/29/20 Status: Ordered Problems Problem Classification Problem Date Documented Da te Episodic/Chronic Abdominal hernia (4 sources) Hiatal hernia 10-23-2014 Episodic Abdominal pain (1 source) Abdominal pain; Translations: [Unspecified abdominal pain] Onset: 02-06-2022 Episodic Acquired foot deformities (4 sources) Talipes planus 05-29-2020 Episodic Anxiety disorders (2 sources) Anxiety 01-09-2014 Chronic Calculus of urinary tract (6 sources) Kidney stone 01-09-2014 Episodic Results Test Name Value Interpretation Reference Range Facil ity Vital Signs Date Time Vital Sign Value Performing Clinician Faci lity 02-06-2022 09:00-0400 Diastolic blood pressure 60 mm[Hg] BROCK AVILES MD [facility] 02-06-2022 09:00-0400 Heart rate 52 /min BROCK AVILES MD [facility] 02-06-2022 09:00-0400 Mean blood pressure 80 mm[Hg] BROCK AVILES MD [facility] 02-06-2022 09:00-0400 Systolic blood pressure 120 mm[Hg] BROCK AVILES MD [facility] 02-06-2022 08:09-0400 Body temperature 96.44 [degF] BROCK AVILES MD [facility] 02-06-2022 08:09-0400 Diastolic blood pressure 17 mm[Hg] BROCK AVILES MD [facility] 02-06-2022 08:09-0400 Heart rate 60 /min BROCK AVILES MD [facility] 02-06-2022 08:09-0400 Mean blood pressure 47 mm[Hg] BROCK AVILES MD [facility] 02-06-2022 08:09-0400 Respiratory rate 16 /min BROCK AVILES MD [facility] 02-06-2022 08:09-0400 Systolic blood pressure 108 mm[Hg] BROCK AVILES MD [facility] Encounters Encounter Date Encounter Type Care Provider Facility Start: 12-03-2022 End: 12-04-2022 ambulatory DARLENE SARMIENTO Facility:B Start: 12-03-2022 End: 12-03-[address] KEITH WEBER MD [facility] Start: 10-21-2022 End: 10-22-2022 ambulatory DARLENE SARMIENTO Facility:A Start: 10-08-2022 End: 08-16-[address] KEITH WEBER MD Facility:[facility] Start: 10-06-2022 ambulatory DARLENE SARMIENTO Facility :[facility] Start: 08-26-2022 End: 08-27-2022 ambulatory DARLENE SARMIENTO Facility:[facility] Start: 08-26-2022 End: 08-26-2022 Patient encounter procedure DARLENE SARMIENTO SPINNER TENDER-SLIDE DEVELOPER [facility] Start: 03-27-2022 End: 03-31-[address] HERRERA PARKS DO [facility] Start: 02-06-2022 End: 02-06-2022 Emergency department patient visit BROCK AVILES MD [facility] Procedures Date Procedure Procedure Detail Performing Clinician Cholecystectomy BROCK BULLOCK MD Laparoscopic sterilization Harman AVILES MD Tonsil and adenoid s tructure (body structure) BROCK AVILES MD Immunizations Immunization Date Immunization Notes Care Provider [facility] 06-28-2002 tetanus and diphther ia toxoids, adsorbed, preservative free, for adult use (5 Lf of tetanus toxoid and 2 Lf of diphtheria toxoid) BROCK AVILES MD [facility] Payers Date Payer Category Payer Unknown [id number] 1986 Unknown [id number] [id number] 1986 Unknown [id number] [id number] [id number] 1986 Unknown [id number] [id number] [id number] 1986 Unknown [id number] 2.16.8 [id number] 1986 Unknown [id number] [id number] [id number] Social History Date Type Detail Facility Start: 05-24-2019 Never smoked t obacco (finding) [facility] Sex Assigned At Female [facility] Evaluation + Plan note 08-26-2022 Radiology Note Date & Type Note Facility 08-26-2022 Evaluation + Plan note Future Appointments Future Scheduled TestsXR Knee 3 Views Right 08/26/22 [facility] Hospital Discharge instructions 02-06-2022 Note Date & Type Note Facility 02-06-2022 Hospital Discharg e instructions Patient Education 02/06/2022 09:53:05 Flank Pain, Uncertain Cause Flank Pain, Uncertain Cause The flank is the area between your upper abdomen and your back. Pain there is often caused by a problem with your kidneys. It might be a kidney infection or a kidney stone. Other causes of flank pain include spinal arthritis, a pinched nerve from a back injury, or a back muscle strain or spasm. The cause of your flank pain is not certain. You may need other tests. Home care Follow these tips when caring for yourself at home: You may use acetaminophen or ibuprofen to control pain, unless your health care provider prescribed another medicine. If you have chronic liver or kidney disease, talk with your provider before taking these medicines. Also talk with your provider first if you ve ever had a stomach ulcer or GI bleeding. If the pain is coming from your muscles, you may get relief with ice or heat. During the first 2 days after the injury, put an ice pack on the painful area for 20 minutes every 2 to 4 hours. This will reduce swelling and pain. A hot shower, hot bath, or heating pad works well for a muscle spasm. You can start with ice, then switch to heat after 2 days. You might find that alternating ice and heat works well. Use the method that feels the best to you. Follow-up care Follow up with your healthcare provider if your symptoms don t get better over the next few days. When to seek medical advice Call your healthcare provider right away if any of these happen: Repeated vomiting Fever of 100.4 F (38 C) or higher, or as directed by your health care provider Flank pain that gets worse Pain that spreads to the front of your belly (abdomen) Dizziness, weakness, or fainting Blood in your urine Burning feeling when you urinate or the need to urinate often Pain in one of your legs that gets worse Numbness or weakness in a leg 2319-1718 [employer]. [address] [place] [address]. All rights reserved. This information is not intended as a substitute for professional medical care. Always follow your healthcare professional's instructions. Follow Up Care 02/06/2022 07:55:50 With:DARLENE SARMIENTO APRN-SLIDE DEVELOPER Address: [address] [place] [address] [place] [address]- [phone] When:2-4 days [facility] Evaluation + Plan note Note Date & Type Note Facility Evaluation + Plan note Future Appointments Appointment Date:02/07/2022 10:35:00 AM Scheduled Provider:VERONIQUE KASPER MD Location:[facility] Appointment Type:PC OV ED Follow Up [facility] Evaluation + Plan note LaboratoryRadiology Note Date & Type Note Facility Evaluation + Plan note Future Appointments Appointment Date:12/04/2022 10:00:00 AM Scheduled Provider:DARLENE SARMIENTO Location:[facility] Appointment Type:PC OV Future Scheduled TestsThyroid Stimulating Hormone 11/19/22Free T4 11/19/22Complete Metabolic Panel 11/19/22XR Knee 3 Views Right 08/26/22 [facility] Hospital course Narrative Note Date & Type Note Facility Hospital course Narrative No data available for this section [facility] Hospital Discharge instructions Note Date & Type Note Facility Hospital Discharge instructions No data available for this section [facility] Progress note Note Date & Type Note Facility Progress note No data available for this section [facility] Summary Purpose Family History No Family History Records Found Advance Directives No Advanced Directives Records Found Additional Source Comments Care Team (unrecognized sect ion and content) Personnel Name: MARIA G SARMIENTOCHEYANNE Ceron SPINNER TENDER-[facility] Address: [address] [place] [address] Care Team (unrecognized sect ion and content) Care Team Personnel Name: DARLENE SARMIENTO SPINNER TENDER-[facility] Position: P4 Advanced Practice Nurse Med Service: Employed Provider Member Role: Primary Care Physician Address: Address: [address] [place] [address] Care Team Related Persons Name: BOB DINH Name: NICK ARGUETA Address: Home [address] [place], [place] [id number] [place] Name: JULIÁN ELLIS Address: [place] [address] [place] Name: GREGORY, SAVANA Name: GREGORY, SAVANA Name: GREGORY, SAVANA Name: GREGORY, SAVANA Name: GREGORY, SAVANA Name: GREGORY, SAVANA Name: GREGORY, SAVANA Name: GREGORY, SAVANA Name: GREGORY, SAVANA Care Team Personnel Name: MARIA G SARMIENTOCHEYANNE Ceron SPINNER TENDER-[facility] Position: P4 Advanced Practice Nurse Member Role: Primary Care Physician Address: Address: [address] [place] [address] Care Team Related Persons Name: BOB DINH Name: NICK ARGUETA Address: Home [address] [place], [place] [phone] [place] Name: JULIÁN ELLIS Address: Home [address] [place], [place] [id number] [place] Name: GREGORY, SAVANA Name: GREGORY, SAVANA Name: GREGORY, SAVANA Name: GREGORY, SAVANA Name: GREGORY, SAVANA Name: GREGORY, SAVANA Name: GREGORY, SAVANA Name: GREGORY, SAVANA Name: GREGORY, SAVANA INFORMATION SOURCE (unrecogn ized section and content) FOR RECORDS PERTAINING TO PATIENTS WHO ARE OR HAVE BEEN ENROLLED IN A CHEMICAL DEPENDENCY/SUBSTANCEABUSE PROGRAM, SOME INFORMATION MAY BE OMITTED. This clinical summary was aggregated from multiple sources. Caution should be exercised in using it in the provision of clinical care. This summary normalizes information from multiple sources, and as a consequence, information in this document may materially change the coding, format and clinical context of patient data. In addition, data may be omitted in some cases. CLINICAL DECISIONS SHOULD BE BASED ON THE PRIMARY CLINICAL RECORDS. [employer] [facility]. provides no warranty or guarantee of the accuracy or completeness of information in this document.
[2023-12-11 17:39] LABS: Differential Indicated SCAN CRITERIA MET
[2023-12-11] MEDS: Ondansetron 4 MG/2 ML Vial IV (17:43)
[2023-12-11] MEDS: 0.9% Normal Saline (1000mL) 1,000 ML 150 ML IV (17:43)
[2023-12-11] MEDS: Ketorolac 30 MG/ML Syringe IV (17:45)
[2023-12-11] MEDS: Morphine 4 MG/ML Syringe IV (17:49)
[2023-12-11 17:55] LABS: Anion Gap 5 (5-15); BUN 12 mg/dL (7-18); BUN/Creat Ratio 12.6 RATIO (10-20); Calcium,Total 9.7 mg/dL (8.5-10.1); Chloride 109 mmol/L (98-107); Creatinine, Serum 0.95 mg/dL (0.55-1.02); EST Glomerular Filtration Rate 70 mL/min (>60); Est Glom Filt Rate - Afr Amer 85 mL/min (>60); Glucose 76 mg/dL (74-106); Potassium 3.7 mmol/L (3.5-5.1); Sodium Level 139 mmol/L (136-145)
[2023-12-11 17:57] LABS: Differential Comment SCANNED
[2023-12-11 17:58] LABS: Platelet Estimate A (ADEQ)
[2023-12-11 18:18] LABS: Bacteria 0 SEEN /hpf (None Seen)
[2023-12-11 18:27] VITALS: BP 125/68; PULSE 57; RESP 16; TEMP 36.7; O2SAT 100
[2023-12-11 18:28] LABS: Color, Urine Yellow (Yellow); Glucose, Dipstick Normal (Normal); Ketone-Dipstick 5 mg/dl (Negative); Leukocyte Esterase-Dipstick Negative /ul (Negative); Nitrite-Dipstick Negative (Negative); Occult Blood-Urine 10 /ul (Negative); Protein-Dipstick Negative (Negative); Specific Gravity, Urine 1.015 (1.002-1.030); Urine Bilirubin Dipstick Negative (Negative); Urine Clarity Clear (Clear); Urine Urobilinogen Normal (Normal); Urine pH 6.5 (5.0 - 8.0)
[2023-12-11 18:34] LABS: Mucous, Urine RARE /hpf (<or=2+); Red Blood Cells-Urine 0-5 SEEN /hpf (0-5); Squamous Epithelial Cells - UA 0-5 SEEN /hpf (5-10); White Blood Cells 0-5 SEEN /hpf (0-5)
[2023-12-11] MEDS: Mag Hydrox/Al Hydrox/Simeth 30 ML UDC PO (18:35)
[2023-12-11 18:59] LABS: Troponin-I HS 5 pg/mL (3.0-54.0)
[2023-12-11 20:18] VITALS: BP 126/83; RESP 18; O2SAT 98
== END 2023-12-11 20:20 | disposition home or self-care (01) ==
PROVIDERS: Emergency Provider Emergency Medicine; PCP Nurse Practitioner Primary Care; Visit Provider Emergency Medicine
DX: R10.9 Unspecified abdominal pain (principal); F32.A Depression, unspecified; F41.9 Anxiety disorder, unspecified; Z79.899 Other long term (current) drug therapy
CPT/HCPCS: 74176; 80048; 81001; 84484; 85025; 93005; 96361; 96374; 96375; 99285; J7030; A4216; J2405